=== PATIENT | female | born 1965 | race Caucasian/White ===

== ENCOUNTER 2024-04-24 19:53 | Emergency (ER) | payer BC, SELFPAY ==
[2024-04-24 19:56] VITALS: BP 226/106
--- NOTE | 2024-04-24 22:31 | ED.SKININJ ---
HPI-Injury
General
Chief Complaint: Skin Surface Trauma
Source: patient
Exam Limitations: none
Time Seen by Provider: 04/24/24 20:53
Nursing documentation reviewed up to this point in time: agreed with
History of Present Illness-Injury
Is this injury a work related problem?: No
Is pt an associate of [facility]?: No
Initial Injury comments:
Accidentally cut finger with mandolin. Has superficial avulsion to right distal thumb. 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
Past History
Past History
ED Past Medical History: Asthma, Hypothyroidism and Other (Influenza B in November 2018 requiring admission to the hospital at [place], Cellulitis, HIV)
ED Past Surgical History: (X 2) and Orthopedic (Left Lisfranc Fracture)
Social History
Tobacco: Non-smoker
Alcohol: None
Drug: None
Personal: Single
Employment: Employed
Family History
Family History: Other (nc)
Review of Systems
Review of Systems
Allergies reviewed?: Yes
All Other Systems: ROS reviewed and negative except as documented in HPI and ROS
Constitutional: Reports no symptoms
Musculoskeletal: Reports no symptoms
Skin: Reports other (skin avulsion right distal thumb)
Neurological: Reports no symptoms
Psychiatric: Reports no symptoms
Skin Exam
Avulsion
Right Distal Thumb:
Type of avulsion injury: superfical
Any active bleeding?: low grade venous oozing
Distal skin color and temperature: normal-warm & good color
Normal distal neurovascular exam: Yes
Phy Exam
General Physical Exam
General Presentation: well appearing and no apparent distress
General age: appears stated age
General Skin: warm and dry
General Habitus: normal
General Mental: alert
Musculoskeletal Exam
Musculoskeletal Exam: full ROM
Skin Exam
Skin Exam: normal color, warm/dry, no rash and other (Superficial skin avulsion right distal thumb. Gelfoam applied. No further bleeding.)
Psychiatric Exam
Psychiatric Exam: normal mood/affect
Course
Vital Signs
Initial and Last Documented VS:
Initial Vital Signs
Temp Pulse Resp BP Pulse Ox
97.8 F 64 22 226/106 98
04/24/24 19:56 04/24/24 19:56 04/24/24 19:56 04/24/24 19:56 04/24/24 19:56
Last Documented Vital Signs
Temp Pulse Resp BP Pulse Ox
97.8 F 64 22 226/106 98
04/24/24 19:56 04/24/24 19:56 04/24/24 19:56 04/24/24 19:56 04/24/24 19:56
*Critical Care Note
Total Time (30-74mins, 75-104mins- exclusive of procedures): Not Applicable
ED Attending Note
-
Portions of this chart may have been created with voice recognition software.� Occasional wrong word or��sound alike� substitutions may have occurred due to the inherent limitations of voice recognition software.
Discharge Plan
Departure
Patient Disposition: Home (Routine Discharge)
Date of Disposition: 04/24/24
Time of Disposition: 21:37
Patient with high blood pressure during this ER visit?: No
Condition: Good
Covid-19: Not Applicable
Discharge Problem:
Avulsion of skin
Instructions: Gelfoam
Prescriptions:
No Action
cetirizine 10 MG tablet
10 mg PO DAILY
levothyroxine [Levoxyl] 137 MCG tablet
137 mcg PO DAILY
albuterol sulfate 1 PUFF HFA aerosol inhaler
1 puff inhalation R [id number] PRN (Reason: sob,wheezing)
zlbysvlcq-haxkchih-sqtttbc ala [Biktarvy] 1 EACH tablet
1 ea PO DAILY
sulfamethoxazole-trimethoprim 1 TABLET tablet
1 tab PO TID Qty: 15 0RF
Referrals:
Dena Manning, DO [Family Provider] - As needed
Interventions
Interventions:
*Risk Screen - Suicide Last Done: 04/24/24 19:56
*General Assessment Last Done: 04/24/24 21:23
*Neglect/Abuse Screening Last Done: 04/24/24 19:56
ED- Fall Risk Assessment Last Done: 04/24/24 21:25
*ED COVID-19 Vaccine History Last Done: 04/24/24 21:22
*Nursing Disposition Last Done: 04/24/24 21:51
ED-Skin Assessment Last Done: 04/24/24 21:23
Discharge Date and Time
Discharge Date/Time: 04/24/24 21:52
Print Language: PALAUAN
== END 2024-04-24 21:52 | disposition home or self-care (01) ==
LOC: EMR 19:53
PROVIDERS: EMERGENCY PHYSICIAN Emergency Medicine; FAMILY PHYSICIAN Internal Medicine
DX: S61.101A Unspecified open wound of right thumb with damage to nail, initial encounter (principal); W26.0XXA Contact with knife, initial encounter; J45.909 Unspecified asthma, uncomplicated; E03.9 Hypothyroidism, unspecified; Z21 Asymptomatic human immunodeficiency virus [HIV] infection status
CPT/HCPCS: 99282

== ENCOUNTER → 2024-06-29 11:45 | Outpatient (REF) | payer BC, SELFPAY | LOC: PAVMRI 11:45 | PROVIDERS: ATTENDING PHYSICIAN Ophthalmology; FAMILY PHYSICIAN Internal Medicine | DX: H47.10 Unspecified papilledema (principal); H53.2 Diplopia; H51.11 Convergence insufficiency; H50.51 Esophoria | CPT/HCPCS: 70543; 70553; A9575 ==